=== PATIENT | male | born 1955 | race African-American/Black ===

== ENCOUNTER 2018-12-18 21:14 | Emergency (ER) | payer MEDICAID ==
[~2018-12-18] VITALS: Ht 172.7 cm; Wt 86.2 kg
[2018-12-18 21:28] VITALS: BP 138/80
== END 2018-12-18 23:49 | disposition home or self-care (01) ==
LOC: ER 21:14
DX: K02.9 Dental caries, unspecified (principal); K12.1 Other forms of stomatitis; F20.9 Schizophrenia, unspecified; F17.210 Nicotine dependence, cigarettes, uncomplicated; R05 Cough; F31.9 Bipolar disorder, unspecified

== ENCOUNTER 2018-12-19 03:30 | Emergency (ER) | payer MEDICAID ==
[~2018-12-19] VITALS: Ht 172.7 cm; Wt 86.2 kg
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
[2018-12-19] MEDS ORDERED: AZITHROMYCIN 500 MG in IV D5W 250 ML IV ONE (05:30)
[2018-12-19] MEDS ORDERED: IPRATROPIUM NEB FS 0.5 MG/2.5 ML AMPUL.NEB NEB ONE (05:30)
[2018-12-19] MEDS ORDERED: ALBUTEROL FS 2.5 MG/3 ML VIAL.NEB NEB ONE (05:30)
[2018-12-19] MEDS ORDERED: IV NS 0.9% 1,000 ML BAG IV ONE (05:30)
[2018-12-19] MEDS ORDERED: CEFTRIAXONE 1GM BAG (ER ONLY) 1 GM/50 ML PIGGYBACK IV ONE (05:30)
[2018-12-19] MEDS ORDERED: AZITHROMYCIN 500 MG VIAL ONE (05:39)
[2018-12-19] MEDS ORDERED: CEFTRIAXONE 1GM BAG (ER ONLY) 50 ML IV ONE (05:39)
[2018-12-19 05:51] LABS: BASOPHILS % (AUTO) 0.4 % (0.0-2.0); HEMATOCRIT 38 % (39-51); LYMPHOCYTES # (AUTO) 1.6 /CMM (0.8-4.8); LYMPHOCYTES % (AUTO) 16.8 % (20.0-44.0); MEAN CORPUSCULAR HGB CONC 34 g/dl (31.0-36.0); MEAN CORPUSCULAR VOLUME 94 fL (80-96); MONOCYTES # (AUTO) 0.9 /CMM (0.1-1.30); MONOCYTES % (AUTO) 9.7 % (2.0-12.0); NEUTROPHILS # (AUTO) 6.3 /CMM (1.8-8.9); NEUTROPHILS % (AUTO) 67.1 % (43.0-81.0); PLATELET COUNT (AUTO) 280 /CMM (150-450); RED BLOOD CELL COUNT(AUTO) 4.08 MIL/uL (4.5-6.0); WHITE BLOOD COUNT (AUTO) 9.4 K/uL (4.3-11.0)
--- NOTE | 2018-12-19 06:00 | NUR ---
RT AT BEDSIDE.
[2018-12-19] MEDS ORDERED: IPRATROPIUM NEB FS 0.5 MG/2.5 ML AMPUL.NEB ONE (06:04)
[2018-12-19] MEDS ORDERED: ALBUTEROL FS 2.5 MG/3 ML VIAL.NEB ONE (06:04)
[2018-12-19 06:07] LABS: CALCIUM, SERUM 8.6 mg/dL (8.5-10.1); CARBON DIOXIDE 27 mmol/L (21-32); CHLORIDE 104 mmol/L (98-107); CREATININE 0.9 mg/dL (0.6-1.3); GLUCOSE 94 mg/dL (74-106); POTASSIUM 3.7 mmol/L (3.5-5.1); SODIUM SERUM 137 mmol/L (136-145); UREA NITROGEN, BLOOD 16 mg/dL (7-18)
--- NOTE | 2018-12-19 06:20 | NUR ---
URINE OBTAINED SENT TO LAB.
[2018-12-19 06:31] LABS: APPEARANCE,URINE CLEAR (CLEAR); BILIRUBIN,URINE NEGATIVE (NEGATIVE); BLOOD, URINE NEGATIVE Ery/uL (NEGATIVE); COLOR,URINE YELLOW (YELLOW); KETONES,URINE NEGATIVE (NEGATIVE); LEUKOCYTE ESTERASE ,URINE NEGATIVE (NEGATIVE); NITRITE, URINE NEGATIVE (NEGATIVE); PROTEIN,URINE NEGATIVE (NEGATIVE); UGLUCOSE NEGATIVE (NEGATIVE)
[2018-12-19 06:38] LABS: BACTERIA,URINE Rare /HPF (None Seen); MUCUS,URINE Rare /LPF (None Seen); RBC,URINE 0-2 /HPF (0-2); SQUAMOUS EPITHELIAL CELL,UR Few /HPF (None Seen); WBC,URINE 0-2 /HPF (0-3)
--- NOTE | 2018-12-19 07:52 | NUR ---
FOOD TRAY ORDERED FROM KITCHEN
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
--- NOTE | 2018-12-19 07:58 | NUR ---
FOOD PROVIDED TO PATIENT AT BEDSIDE.
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
[2018-12-19 09:33] VITALS: BP 135/81
--- NOTE | 2018-12-19 09:34 | NUR ---
Patient discharged to home in stable condition. Written and verbal after care instructions given. Patient verbalizes understanding of instruction. Johanna FUNES at bedside and provided safe homeless discharge papers, tap card and food provided. Left in no apparent distress noted, nor chest kaur.
== END 2018-12-19 09:34 | disposition home or self-care (01) ==
LOC: ER 03:30
DX: J20.9 Acute bronchitis, unspecified (principal); F17.200 Nicotine dependence, unspecified, uncomplicated; F20.9 Schizophrenia, unspecified; F31.9 Bipolar disorder, unspecified
CPT/HCPCS: 36415; 71045; 80048; 81001; 82550; 83605; 84484; 85025; 85730; 87040 ×2; 93005; 94640; 96365; 96368; 99284; J0456; J0696; J7030; J7060; 81000-TC

== ENCOUNTER 2019-01-14 06:56 | Emergency (ER) | payer MEDICAID ==
[~2019-01-14] VITALS: Ht 172.7 cm; Wt 86.2 kg
--- NOTE | 2019-01-14 06:59 | NUR ---
CALLED IN WR, NO ANSWER.
--- NOTE | 2019-01-14 07:12 | NUR ---
called in the waiting room for triage no answer.
--- NOTE | 2019-01-14 07:28 | NUR ---
PT BIB SELF C/O BACK PAIN STARTED THIS MORNING 9/10 PAIN SCALE, PT IS AAOX4, NOT IN RESPIRATORY DISTRESS, V/S STABLE, KEPT RESTED AND COMFORTABLE. WILL CONTINUE TO MONITOR.
--- NOTE | 2019-01-14 07:30 | NUR ---
PT SEEN AND EXAMINED BY DR. ACOSTA.
[2019-01-14] MEDS ORDERED: HYDROCODONE/APAP 5/325MG 1 EACH TABLET ONE (07:37)
[2019-01-14] MEDS ORDERED: IBUPROFEN 600 MG TABLET PO ONE ×2 (07:37→08:00)
--- NOTE | 2019-01-14 07:48 | NUR ---
URINE SPECIMEN COLLECTED AND SENT TO LAB.
[2019-01-14] MEDS ORDERED: HYDROCODONE/APAP 5/325MG 1 EACH TABLET PO ONE (08:00)
--- NOTE | 2019-01-14 08:13 | NUR ---
PT IS WHEELED TO CT SCAN VIA WHEELCHAIR.
[2019-01-14 08:14] LABS: APPEARANCE,URINE Clear (CLEAR); BILIRUBIN,URINE Negative (NEGATIVE); BLOOD, URINE Negative Ery/uL (NEGATIVE); COLOR,URINE Yellow (YELLOW); KETONES,URINE Negative (NEGATIVE); LEUKOCYTE ESTERASE ,URINE Negative (NEGATIVE); NITRITE, URINE Negative (NEGATIVE); PROTEIN,URINE Negative (NEGATIVE); UGLUCOSE Negative (NEGATIVE); UROBILINOGEN,URINE 0.2 EU/dL (0.2)
[2019-01-14 09:44] VITALS: BP 116/81
--- NOTE | 2019-01-14 09:44 | NUR ---
Patient discharged to home in stable condition. Written and verbal after care instructions given. Patient verbalizes understanding of instruction.
== END 2019-01-14 09:44 | disposition home or self-care (01) ==
LOC: ER 07:00
DX: S39.012A Strain of muscle, fascia and tendon of lower back, initial encounter (principal); F20.9 Schizophrenia, unspecified; F31.9 Bipolar disorder, unspecified; F17.200 Nicotine dependence, unspecified, uncomplicated; W01.0XXA Fall on same level from slipping, tripping and stumbling without subsequent striking against object, initial encounter; Y93.E1 Activity, personal bathing and showering; Y92.89 Other specified places as the place of occurrence of the external cause; Y99.8 Other external cause status
CPT/HCPCS: 72131-TC; 81000-TC

== ENCOUNTER 2019-05-17 01:16 | Emergency (ER) | payer MEDICAID ==
[~2019-05-17] VITALS: Ht 170.2 cm; Wt 90.7 kg
[2019-05-17 01:31] VITALS: BP 131/72
[2019-05-17] MEDS ORDERED: PENICILLIN V POTASSIUM 500 MG TABLET PO ONE ×2 (01:47→02:00)
[2019-05-17] MEDS ORDERED: HYDROCODONE/APAP 5/325MG 1 EACH TABLET ONE (01:47)
[2019-05-17] MEDS ORDERED: HYDROCODONE/APAP 5/325MG 1 EACH TABLET PO ONE (02:00)
--- NOTE | 2019-05-17 02:04 | NUR ---
Patient given written and verbal discharge instructions. Patient verbalizes understanding of instructions. Patient is ambulatory with steady gait. Refuses offer of correction placement and transportation. Patient given some to go snacks. pt has proper clothing on.
== END 2019-05-17 02:12 | disposition home or self-care (01) ==
LOC: ER 01:18
DX: K02.9 Dental caries, unspecified (principal); K08.89 Other specified disorders of teeth and supporting structures; F17.200 Nicotine dependence, unspecified, uncomplicated; F20.9 Schizophrenia, unspecified; F31.9 Bipolar disorder, unspecified